=== PATIENT | male | born 1940 | race American Indian/Alaskan Native ===

== ENCOUNTER 2018-06-28 10:36 | Emergency (ER) | payer MEDICARE, BC ==
[2018-06-28 11:07] VITALS: RESP 18
[2018-06-28 12:08] LABS: BASO # 0.1 K/uL (0.0-0.2); BASO % 1.2 % (0.0-2.0); EOS # 0.1 K/uL (0.0-0.7); EOS % 1.7 % (0.0-4.0); HEMOGLOBIN 13.7 g/dL (12.0-18.0); LYMPH # 1.7 K/uL (1.0-4.3); LYMPH % 30.6 % (20.0-40.0); MEAN CELL VOLUME 88.2 fL (80.0-94.0); MEAN CORPUSCULAR HEMOGLOBIN 30.1 pg (27.0-31.0); MEAN CORPUSCULAR HGB CONC 34.1 g/dL (33.0-37.0); MEAN PLATELET VOLUME 8.2 fL (7.2-11.7); MONO # 0.6 K/uL (0.0-0.8); MONO % 10.5 % (0.0-10.0); NEUT # 3.2 K/uL (1.8-7.0); NRBC % 0.1 % (0.0-2.0); RBC 4.55 Mil/uL (4.40-5.90); RED CELL DISTRIBUTION WIDTH 15.4 % (11.5-14.5); WHITE BLOOD COUNT 5.7 K/uL (4.8-10.8)
[2018-06-28 12:17] LABS: INR 1.1
[2018-06-28 12:25] LABS: ALB/GLOB RATIO 1.4 (1.0-2.1); ALBUMIN 4.4 g/dL (3.5-5.0); ALT/SGPT 31 U/L (21-72); AST/SGOT 26 U/L (17-59); BLOOD UREA NITROGEN 9 mg/dL (9-20); CALCIUM 9.5 mg/dl (8.6-10.4); GFR NON-AFRICAN AMERICAN > 60; LIPASE 311 U/L (23-300)
[2018-06-28 12:37] LABS: B-TYPE NATRIURETIC PEPTIDE 271 pg/mL (0-900)
[2018-06-28 13:51] LABS: URINE BILIRUBIN NEGATIVE (NEGATIVE); URINE BLOOD NEGATIVE (NEGATIVE); URINE CLARITY Clear (Clear); URINE COLOR Yellow (YELLOW); URINE GLUCOSE (UA) NORMAL (Normal); URINE LEUKOCYTE ESTERASE NEG Leu/uL (Negative); URINE PROTEIN NEGATIVE (NEGATIVE); URINE UROBILINOGEN NORMAL mg/dL (0.2-1.0)
--- NOTE | 2018-06-28 13:54 | C.PDOC ---
History Of Present Illness 77 yo male BIBA accompanied by mother for evaluation of Left sided lower back pain . As per , " he was complaining on some pain over left side of body this AM. He also has some open wound over his Left lower leg that I noticed few days ago". At present time, pt denies any active complaints, denies back pain, denies known trauma or injury to lower back or Left leg. Pt and denies fever, chills, recent illness, headache, dizziness, neck pain, CP, SOB, dyspnea , diaphoresis, palpitation, abd. pain, V/D, food intolerance, UTI sx, hematuria. Ambulatory in ED with baseline gait, appears comfortable, not in any apparent distress. Time Seen by Provider: 06/28/18 11:38 Chief Complaint (Nursing): Back Pain History Per: Patient, Family Past Medical History Reviewed: Historical Data, Nursing Documentation, Vital Signs Vital Signs: Last Vital Signs Temp 98.0 F 06/28/18 14:28 Pulse 54 L 06/28/18 14:28 Resp 18 06/28/18 14:28 BP 161/74 H 06/28/18 14:28 Pulse Ox 99 06/28/18 14:28 - Medical History PMH: Alzheimer's Disease, Dementia, HTN Family History: States: No Known Family Hx - Social History Hx Tobacco Use: No Hx Alcohol Use: No Hx Substance Use: No - Immunization History Hx Tetanus Toxoid Vaccination: No Hx Influenza Vaccination: Yes Hx Pneumococcal Vaccination: No Review Of Systems Except As Marked, All Systems Reviewed And Found Negative. Constitutional: Negative for: Fever, Chills Eyes: Negative for: Vision Change ENT: Negative for: Throat Pain Cardiovascular: Negative for: Chest Pain, Palpitations, Orthopnea, Paroxysmal Noc. Dyspnea, Edema, Light Headedness Respiratory: Negative for: Cough, Shortness of Breath, Wheezing Gastrointestinal: Negative for: Nausea, Vomiting, Abdominal Pain, Diarrhea Musculoskeletal: Positive for: Back Pain. Negative for: Neck Pain, Foot Pain Skin: Positive for: Lesions Neurological: Negative for: Weakness, Numbness, Altered Mental Status, Headache , Dizziness Physical Exam - Physical Exam Appears: Well, Non-toxic, No Acute Distress Skin: Normal Color, Warm, Dry, No Rash, No Ecchymosis, Other (small open wound 1cm diameter over anterior aspect Left lower leg. NO erythema, no edema, no discharge.) Head: Atraumatic, Normacephalic Eye(s): bilateral: PERRL Nose: No Flaring, No Discharge Oral Mucosa: Moist, No Drooling Throat: No Erythema, No Drooling Neck: Normal ROM, Trachea Midline, Supple Cardiovascular: Rhythm Regular, No Murmur, No JVD Respiratory: No Decreased Breath Sounds, No Accessory Muscle Use, No Stridor, No Wheezing Gastrointestinal/Abdominal: Soft, No Distention, No Guarding, No Rebound Back: No CVA Tenderness, No Vertebral Tenderness Extremity: Normal ROM, No Tenderness, No Pedal Edema, No Calf Tenderness, No Deformity, No Swelling Neurological/Psych: Normal Speech, Normal Motor, Normal Sensation, Normal Reflexes ED Course And Treatment - Laboratory Results Result Diagrams: 06/28/18 12:04 06/28/18 12:04 Lab Interpretation: No Acute Changes ECG: Interpreted By Me, Viewed By Me (and ED attending) ECG Rhythm: Sinus Bradycardia Interpretation Of ECG: Sinus bradycardia with 1st degree AV block. Possible Left atrial enlargement. Borderline ECG O2 Sat by Pulse Oximetry: 96 Pulse Ox Interpretation: Normal - CT Scan/US Doppler US LLE Other Rad Studies (CT/US): Read By Radiologist CT/US Interpretation: (-) DVT to LLE Progress Note: On re-eval, pt is afebrile, hemodynamicaly stable, not in any apparent distress. Non-toxic,. Ambulatory in ED with baseline gait. Pulse Ox 100% RA. ENT: no acute findings. Neck: Supple, (-) JVD. Lungs: CTA B/L, BS equal B/L. CVS: (+)S1S2, reg. Abd: benign, (-) guarding, (-) rebound. Neurologicaly intact. Blood owrk review and appears without acute abnormalities. Dupplex US LLE (-) DVT. Pt has clinical findings c/w chronic open wound to Left lower leg. Pt and family advised . ref. to f/u with PMD, Wound care in 1-2 days for re-evaluation. Return to ED if any worsening or new changes. Disposition Counseled Patient/Family Regarding: Diagnosis, Need For Followup - Disposition Referrals: [facility] [Outside] Senait Carson MD [Staff Provider] - Disposition: HOME/ ROUTINE Disposition Time: 13:51 Condition: STABLE Additional Instructions: Apply cream topically to wound daily Follow up with PMD in 2-3 dyas for re-evaluation. return to ED if any worsening or new changes. Prescriptions: Bacitracin OINT 1 applic TP BID #1 tube Instructions: Low Back Pain in Adults, Wound Care (DC) Forms: Jule[employer] ([place]) - Clinical Impression Clinical Impression: Low back strain, Open wound
--- NOTE | 2018-06-28 14:10 | VASCLAB ---
Date of service: 06/28/2018 PROCEDURE: Right Lower Extremity Venous Duplex Exam. HISTORY: Right leg pain, open wound PRIORS: None. TECHNIQUE: Right common femoral, femoral, popliteal and posterior tibial, peroneal and great saphenous veins were evaluated. Flow was assessed with color Doppler, compressibility, assessment of phasic flow and augmentation response. Report prepared by GALLO Montero, RVT FINDINGS: RIGHT: 1. Common Femoral Vein: 1.1. Compressibility - Fully compressible: Thrombus - None: Flow - Phasic: Augmentation -Normal: Reflux - None. 2. Femoral Vein: 2.1. Compressibility - Fully compressible: Thrombus - None: Flow - Phasic: Augmentation -Normal: Reflux - None. 3. Popliteal Vein: 3.1. Compressibility - Fully compressible: Thrombus - None: Flow - Phasic: Augmentation -Normal: Reflux - None. 4. Posterior Tibial Vein: 4.1. Compressibility - Fully compressible: Thrombus - None: Flow - Phasic: Augmentation -Normal: Reflux - None. 5. Peroneal Vein: 5.1. Compressibility - Fully compressible: Thrombus - None: Flow - Phasic: Augmentation -Normal: Reflux - None. 6. Great Saphenous Vein: 6.1. Compressibility - Fully compressible: Thrombus -None: Flow - Phasic: Augmentation - Normal: Reflux - None. OTHER FINDINGS: IMPRESSION: No evidence of deep or superficial vein thrombosis of the right lower extremity with excellent venous flow. Normal valve function noted of the right side. Normal venous flow noted in the left common femoral vein.
[2018-06-28 14:29] VITALS: BP 161/74; PULSE 54; TEMP 98
--- NOTE | 2018-06-29 12:59 | CARD ---
APPROVED REPORT Date of service: 06/28/2018 EKG Measurement Heart [id number] <Conclusion> Sinus bradycardia with 1st degree AV block Possible Left atrial enlargement Borderline ECG
[2018-06-29 22:58] VITALS: O2SAT 96
== END 2018-06-28 14:29 | disposition home or self-care (01) ==
LOC: C.ER 10:36
DX: S39.012A Strain of muscle, fascia and tendon of lower back, initial encounter (principal); S81.802A Unspecified open wound, left lower leg, initial encounter; X58.XXXA Exposure to other specified factors, initial encounter